=== PATIENT | male | born 1960 | race Caucasian/White ===

== ENCOUNTER 2018-11-20 07:05 | Observation (INO) ==
[2018-11-20] MEDS ORDERED: SODIUM CHLORIDE 0.9% 2,000 ML IV STA (07:33)
[2018-11-20 08:20] LABS: Basophils # 0.1 10*3/uL (0.0-0.2); Basophils % 0.3 % (0.0-0.8); Eosinophils % 0.1 % (0.00-10.9); Hematocrit 44.6 VOL% (42.0-52.0); Hemoglobin 14.5 GM/DL (14.0-18.0); Immature Granulocytes Absolute 0.16 #; Lymphocytes # 1.3 10*3/uL (1.4-4.0); Lymphocytes % 8.1 % (21.2-54.2); Mean Corpuscular HGB Conc 32.5 GM/DL (32-36); Mean Corpuscular Volume 97.8 FL (87-102); Mean Platelet Volume 10.9 FL (9.6-12.0); Monocytes % 5.3 % (1.7-12.7); Neutrophils % 85.2 % (38.7-73.9); Platelet Count 184 T/CUMM (130-400); Red Blood Count 4.56 MC/CUMM (3.8-5.5); Red Cell Distribution Width 14.2 % (9.3-17.3); White Blood Count 16.1 T/CUMM (4-12)
[2018-11-20 08:43] LABS: Alanine Aminotransferase 71 U/L (16-61); Alkaline Phosphatase 75 U/L (45-117); Aspartate Amino Transferase 57 U/L (0-37); Blood Urea Nitrogen 11 MG/DL (7-18); Calcium 8.6 MG/DL (8.5-10.1); Glucose 114 MG/DL (74-106); Total Protein 7.7 G/DL (6.4-8.3)
[2018-11-20 08:50] LABS: Apearance,Urine CLEAR (Clear); Bilirubin,Urine Negative (Negative); Blood, Urine Small mg/dL (Negative); Glucose,Urine (UA) Negative (Negative); Hyaline Casts,Urine 9 /LPF (0-3); Ketones,Urine Negative (Negative); Mucus,Urine Occasional /LPF (Occasional); Nitrite,Urine Negative (Negative); Protein,Urine 30 MG/DL; RBC,Urine 3 /HPF (0-4); Sperm,Urine Occasional /HPF (Negative); Urine Color Yellow (Yellow); WBC,Urine 3 /HPF (0-6)
[2018-11-20 09:01] LABS: Barbiturates Screen,Urine Negative (Negative); Benzodiazepines Screen,Urine Positive (Negative); Cannabinoid Screen,Urine Negative (Negative); Opiate Screen,Urine Positive (Negative); Phencyclidine Screen,Urine Negative (Negative)
[2018-11-20] MEDS ORDERED: ONDANSETRON 4 MG/2 ML VIAL IV PRN (11:09)
[2018-11-20] MEDS ORDERED: PROMETHAZINE 25 MG/1 ML VIAL IM PRN (11:09)
[2018-11-20] MEDS ORDERED: ACETAMINOPHEN 325 MG TABLET PO PRN (11:09)
[2018-11-20] MEDS ORDERED: ENOXAPARIN 40 MG/0.4 ML SYRINGE SUBCUT SCH (11:30)
[2018-11-20] MEDS ORDERED: SODIUM CHLORIDE 0.9% 500 ML IV STA (11:32)
[2018-11-20] MEDS: PANTOPRAZOLE 40 MG TABLET PO SCH ×2 (13:26→20:01)
[2018-11-20] MEDS: SODIUM CHLORIDE 0.9% 1,000 ML IV SCH ×2 (14:17→22:15)
[2018-11-20 14:43] LABS: HIV Antigen/Antibody Result Nonreactive (Nonreactive); Hepatitis B Core IgM Quant < 0.05 Index; Hepatitis B Surface Ag Quant < 0.10 Index; Hepatitis B Surface Ag Result Negative (Negative); Hepatitis C Virus Ab Quant > 11.00 Index; Hepatitis C Virus Ab Result Positive (Negative)
[2018-11-20] MEDS ORDERED: ZIPRASIDONE 20 MG/1 ML VIAL IM PRN (17:59)
[2018-11-21] MEDS: SODIUM CHLORIDE 0.9% 1,000 ML IV SCH (06:50)
[2018-11-21 08:28] VITALS: BP 144/77
== END 2018-11-21 08:30 | disposition home or self-care (01) ==
LOC: EDUNIT# → EDBD → N.ED 07:05 → N.EDINP 07:05 → SUATTDRO 11:09 → N.2E 12:06
PROVIDERS: ADMIT Internal Medicine; ATTEND Internal Medicine

== ENCOUNTER 2020-09-07 13:18 | Inpatient (IN) ==
[2020-09-07 14:47] LABS: Basophils % 0.4 % (0.0-0.8); Eosinophils # 0.2 10*3/uL (0.0-0.87); Eosinophils % 1.8 % (0.00-10.9); Hematocrit 41.5 VOL% (42.0-52.0); Hemoglobin 14.4 GM/DL (14.0-18.0); Immature Granulocytes % 0.5 %; Immature Granulocytes Absolute 0.05 #; Lymphocytes # 3.1 10*3/uL (1.4-4.0); Lymphocytes % 33.3 % (21.2-54.2); Mean Corpuscular HGB Conc 34.7 GM/DL (32-36); Mean Corpuscular Volume 88.3 FL (87-102); Mean Platelet Volume 10.5 FL (9.6-12.0); Monocytes % 6.8 % (1.7-12.7); Neutrophils % 57.2 % (38.7-73.9); Platelet Count 208 T/CUMM (130-400); Red Cell Distribution Width 16.2 % (9.3-17.3); White Blood Count 9.2 T/CUMM (4-12)
[2020-09-07 15:29] LABS: Albumin 2.9 G/DL (3.4-5.0); Calcium 8.7 MG/DL (8.5-10.1); Osmolality,Calculated 260.7 MOS/KG (273-304); Potassium 2.9 MMOL/L (3.5-5.1); Total Protein 7.6 G/DL (6.4-8.3)
[2020-09-07 15:32] LABS: Bilirubin,Total 15.3 MG/DL (0.2-1.0)
[2020-09-07] MEDS ORDERED: POTASSIUM CHLORIDE RIDER 20 MEQ in PREMIX 1 EACH IV PRN (15:55)
[2020-09-07] MEDS ORDERED: POTASSIUM CHLORIDE RIDER 10 MEQ in PREMIX 1 EACH IV PRN (16:48)
[2020-09-07] MEDS ORDERED: DEXTROSE 50% 25 GM/50 ML VIAL IV PRN (16:56)
[2020-09-07] MEDS ORDERED: ALBUTEROL/IPRATROPIUM 3 ML NEB RESP TX PRN (16:56)
[2020-09-07] MEDS ORDERED: GLUCAGON 1 MG VIAL IM PRN (16:56)
[2020-09-07] MEDS ORDERED: CALCIUM CARBONATE CHEW 500 MG TABLET PO PRN (16:56)
[2020-09-07] MEDS ORDERED: SIMETHICONE CHEW 125 MG TABLET PO PRN (16:56)
[2020-09-07] MEDS ORDERED: MORPHINE 4 MG/1 ML VIAL IV PRN (16:56)
[2020-09-07] MEDS ORDERED: ONDANSETRON 4 MG/2 ML VIAL IV PRN (16:56)
[2020-09-07] MEDS ORDERED: ALUMINUM/MAGNES/SIMETH MAX STR 30 ML UDCUP PO PRN (16:56)
[2020-09-07] MEDS: ENOXAPARIN 40 MG/0.4 ML SYRINGE SUBCUT SCH (19:37)
[2020-09-07 19:43] LABS: Hepatitis B Surface Ag Result Non-Reactive (NonReactive)
[2020-09-07 19:44] LABS: Hepatitis C Virus Ab Quant > 11.00 Index; Hepatitis C Virus Ab Result Reactive (NonReactive)
[2020-09-07] MEDS ORDERED: POTASSIUM CHLORIDE INJ 40 MEQ in SODIUM CHLORIDE 0.45% 1,000 ML IV SCH (20:00)
[2020-09-08] MEDS ORDERED: NITROGLYCERIN SL 0.4 MG TABLET SL PRN (00:09)
[2020-09-08] MEDS: SODIUM CHLORIDE 0.9% 1,000 ML IV SCH ×2 (01:58→17:23)
[2020-09-08] MEDS: POTASSIUM CHLORIDE 20 MEQ TABLET PO SCH ×2 (01:59→09:31)
[2020-09-08 06:44] LABS: Basophils % 0.4 % (0.0-0.8); Eosinophils # 0.2 10*3/uL (0.0-0.87); Eosinophils % 2.2 % (0.00-10.9); Hematocrit 37.5 VOL% (42.0-52.0); Hemoglobin 13.1 GM/DL (14.0-18.0); Immature Granulocytes % 0.7 %; Immature Granulocytes Absolute 0.07 #; Lymphocytes # 3.8 10*3/uL (1.4-4.0); Lymphocytes % 39.7 % (21.2-54.2); Mean Corpuscular HGB Conc 34.9 GM/DL (32-36); Mean Corpuscular Volume 88.4 FL (87-102); Mean Platelet Volume 10.9 FL (9.6-12.0); Monocytes % 8.1 % (1.7-12.7); Neutrophils % 48.9 % (38.7-73.9); Platelet Count 213 T/CUMM (130-400); Red Blood Count 4.24 MC/CUMM (3.8-5.5); Red Cell Distribution Width 16.4 % (9.3-17.3); White Blood Count 9.6 T/CUMM (4-12)
[2020-09-08 06:49] LABS: INR 2.5; PT Patient Result 25.4 SECS (9.8-11.9); Partial Thromboplastin Time 44.1 SECS (23.9-33.8)
[2020-09-08 07:03] LABS: Calcium 8.4 MG/DL (8.5-10.1); Osmolality,Calculated 264.4 MOS/KG (273-304); Potassium 3.7 MMOL/L (3.5-5.1)
[2020-09-08 07:05] LABS: Platelet Estimate Adequate
[2020-09-08 07:12] LABS: Albumin 2.4 G/DL (3.4-5.0); Bilirubin,Direct 10.02 MG/DL (0.0-0.20)
[2020-09-08 07:14] LABS: Bilirubin,Indirect 4.6 MG/DL (0.0-1.0); Bilirubin,Total 14.6 MG/DL (0.2-1.0)
[2020-09-08] MEDS ORDERED: MAGNESIUM SULF RIDER 4 GM in PREMIX 1 EACH IV PRN (08:05)
[2020-09-08] MEDS ORDERED: MAGNESIUM SULF RIDER 2 GM in PREMIX 1 EACH IV PRN (08:05)
[2020-09-08] MEDS ORDERED: amLODIPine 2.5 MG TABLET PO SCH (09:00)
[2020-09-08] MEDS ORDERED: PANTOPRAZOLE 40 MG TABLET PO SCH (09:00)
[2020-09-08] MEDS: LORazepam 2 MG/1 ML VIAL IV PRN ×2 (10:44→17:23)
[2020-09-08 13:34] LABS: HIV Antigen/Antibody Result Nonreactive (Nonreactive)
[2020-09-08] MEDS: ENOXAPARIN 40 MG/0.4 ML SYRINGE SUBCUT SCH (17:15)
[2020-09-08 19:40] VITALS: BP 134/86
[2020-09-11 18:51] LABS: CMV DNA Detect/Quant, P Undetected IU/mL (Undetected)
[2020-09-12 09:46] LABS: EBV Quantitative PCR Not Detected
== END 2020-09-08 20:30 | disposition left against medical advice (07) | DRG 443 ==
LOC: N.ED 13:18 → N.EDINP 16:56 → N.TELES 22:03
PROVIDERS: ADMIT Internal Medicine; ATTEND Internal Medicine

== ENCOUNTER 2020-09-11 06:35 | Inpatient (IN) ==
[2020-09-11 07:12] LABS: Basophils % 0.4 % (0.0-0.8); Eosinophils # 0.2 10*3/uL (0.0-0.87); Eosinophils % 1.9 % (0.00-10.9); Hematocrit 43.2 VOL% (42.0-52.0); Hemoglobin 14.6 GM/DL (14.0-18.0); Immature Granulocytes % 0.5 %; Immature Granulocytes Absolute 0.05 #; Lymphocytes # 2.8 10*3/uL (1.4-4.0); Lymphocytes % 27.2 % (21.2-54.2); Mean Corpuscular HGB Conc 33.8 GM/DL (32-36); Mean Corpuscular Volume 88.7 FL (87-102); Mean Platelet Volume 10.6 FL (9.6-12.0); Monocytes % 8.3 % (1.7-12.7); Neutrophils % 61.7 % (38.7-73.9); Platelet Count 226 T/CUMM (130-400); Red Blood Count 4.87 MC/CUMM (3.8-5.5); Red Cell Distribution Width 16.8 % (9.3-17.3); White Blood Count 10.1 T/CUMM (4-12)
[2020-09-11 07:31] LABS: Alanine Aminotransferase 602 U/L (16-61); Albumin 2.7 G/DL (3.4-5.0); Alkaline Phosphatase 199 U/L (45-117); Amylase 17 U/L (25-115); Aspartate Amino Transferase 178 U/L (0-37); Blood Urea Nitrogen 9 MG/DL (7-18); Calcium 8.8 MG/DL (8.5-10.1); Carbon Dioxide 20 MMOL/L (21-32); Estimated Glom Filtration Rate 93 ML/MIN; Glucose 99 MG/DL (74-106); Osmolality,Calculated 251.4 MOS/KG (273-304); Potassium 3.9 MMOL/L (3.5-5.1); Sodium 126 MMOL/L (136-145); Total Protein 9.7 G/DL (6.4-8.3)
[2020-09-11 07:46] LABS: INR 1.5; PT Patient Result 15.4 SECS (9.8-11.9); Partial Thromboplastin Time 37.8 SECS (23.9-33.8)
[2020-09-11 08:10] LABS: Barbiturates Screen,Urine Negative (Negative); Benzodiazepines Screen,Urine Negative (Negative); Cannabinoid Screen,Urine Negative (Negative); Opiate Screen,Urine Negative (Negative); Phencyclidine Screen,Urine Negative (Negative)
[2020-09-11] MEDS ORDERED: DEXTROSE 50% 25 GM/50 ML VIAL IV PRN (08:35)
[2020-09-11] MEDS ORDERED: GLUCAGON 1 MG VIAL IM PRN (08:35)
[2020-09-11] MEDS ORDERED: cloNIDine 0.1 MG TABLET PO PRN (08:40)
[2020-09-11] MEDS ORDERED: THIAMINE INJ 100 MG, FOLIC ACID INJ 1 MG, MULTIVITAMIN INJ 10 ML in SODIUM CHLORIDE 0.9... IV ONE (09:15)
[2020-09-11] MEDS: LORazepam 2 MG/1 ML VIAL IV PRN ×2 (13:10→21:40)
[2020-09-11] MEDS ORDERED: METHOCARBAMOL 750 MG TABLET PO PRN (13:31)
[2020-09-11] MEDS ORDERED: BUPRENORPHINE SL TAB 2 MG TABLET SL SCH (14:00)
[2020-09-11] MEDS ORDERED: chlordiazePOXIDE 25 MG CAPSULE PO SCH (14:00)
[2020-09-11] MEDS: SODIUM CHLORIDE 0.9% 1,000 ML IV SCH (14:33)
[2020-09-11] MEDS: chlordiazePOXIDE 25 MG CAPSULE PO SCH ×2 (17:31→22:33)
[2020-09-11] MEDS: BUPRENORPHINE SL TAB 2 MG TABLET SL SCH (17:32)
[2020-09-11] MEDS ORDERED: ALUMINUM/MAGNES/SIMETH MAX STR 30 ML UDCUP PO PRN (21:57)
[2020-09-11 22:31] LABS: Blood, Urine Negative (Negative); Glucose,Urine (UA) Negative (Negative); Ketones,Urine Negative (Negative); Nitrite,Urine Negative (Negative); Protein,Urine Negative; RBC,Urine 3 /HPF (0-4); Urine Appearance CLEAR (Clear); Urine Color Amber (Yellow); Urine Specific Gravity 1.009 (1.001-1.035)
[2020-09-11 22:33] LABS: Bilirubin,Urine Moderate mg/dL (Negative)
[2020-09-12] MEDS: BUPRENORPHINE SL TAB 2 MG TABLET SL SCH ×3 (01:20→17:43)
[2020-09-12] MEDS: chlordiazePOXIDE 25 MG CAPSULE PO SCH ×3 (05:11→17:42)
[2020-09-12 07:26] LABS: Basophils # 0.1 10*3/uL (0.0-0.2); Basophils % 0.4 % (0.0-0.8); Eosinophils # 0.1 10*3/uL (0.0-0.87); Hematocrit 37.4 VOL% (42.0-52.0); Hemoglobin 13.3 GM/DL (14.0-18.0); Immature Granulocytes % 0.6 %; Immature Granulocytes Absolute 0.07 #; Lymphocytes # 2.5 10*3/uL (1.4-4.0); Lymphocytes % 19.8 % (21.2-54.2); Mean Corpuscular HGB Conc 35.6 GM/DL (32-36); Mean Platelet Volume 10.5 FL (9.6-12.0); Monocytes % 9.1 % (1.7-12.7); Neutrophils % 69.1 % (38.7-73.9); Platelet Count 215 T/CUMM (130-400); White Blood Count 12.6 T/CUMM (4-12)
[2020-09-12 07:44] LABS: Albumin 2.3 G/DL (3.4-5.0); Calcium 8.6 MG/DL (8.5-10.1); Osmolality,Calculated 248.5 MOS/KG (273-304); Potassium 4.1 MMOL/L (3.5-5.1); Total Protein 8.7 G/DL (6.4-8.3)
[2020-09-12 07:52] LABS: Bilirubin,Total 20.1 MG/DL (0.2-1.0)
[2020-09-12] MEDS: PANTOPRAZOLE 40 MG TABLET PO SCH (09:30)
[2020-09-12] MEDS: NICOTINE 21 MG/24 HR PATCH TRANSDERM SCH (12:44)
[2020-09-12] MEDS: THIAMINE INJ 100 MG, FOLIC ACID INJ 1 MG, MULTIVITAMIN INJ 10 ML in SODIUM CHLORIDE 0.9... IV SCH (12:44)
[2020-09-12] MEDS: SODIUM CHLORIDE 0.9% 1,000 ML IV SCH (12:45)
[2020-09-12] MEDS: HydrOXYzine PAMOATE 50 MG CAPSULE PO PRN (21:21)
[2020-09-13] MEDS: chlordiazePOXIDE 25 MG CAPSULE PO SCH ×3 (01:07→18:32)
[2020-09-13] MEDS: BUPRENORPHINE SL TAB 2 MG TABLET SL SCH ×3 (01:07→18:32)
[2020-09-13 06:45] LABS: Basophils # 0.1 10*3/uL (0.0-0.2); Basophils % 0.5 % (0.0-0.8); Eosinophils # 0.2 10*3/uL (0.0-0.87); Eosinophils % 1.9 % (0.00-10.9); Hematocrit 37.6 VOL% (42.0-52.0); Hemoglobin 13.1 GM/DL (14.0-18.0); Immature Granulocytes % 0.6 %; Immature Granulocytes Absolute 0.06 #; Lymphocytes # 2.4 10*3/uL (1.4-4.0); Lymphocytes % 24.5 % (21.2-54.2); Mean Corpuscular HGB Conc 34.8 GM/DL (32-36); Mean Corpuscular Volume 88.9 FL (87-102); Mean Platelet Volume 10.8 FL (9.6-12.0); Monocytes % 7.4 % (1.7-12.7); Neutrophils % 65.1 % (38.7-73.9); Platelet Count 169 T/CUMM (130-400); Red Blood Count 4.23 MC/CUMM (3.8-5.5); Red Cell Distribution Width 17.2 % (9.3-17.3); White Blood Count 9.7 T/CUMM (4-12)
[2020-09-13 06:51] LABS: INR 1.3; PT Patient Result 13.3 SECS (9.8-11.9)
[2020-09-13 07:08] LABS: Albumin 2.1 G/DL (3.4-5.0); Calcium 8.3 MG/DL (8.5-10.1); Osmolality,Calculated 257.8 MOS/KG (273-304); Total Protein 8.3 G/DL (6.4-8.3)
[2020-09-13 07:29] LABS: Bilirubin,Total 21.8 MG/DL (0.2-1.0)
[2020-09-13] MEDS: THIAMINE INJ 100 MG, FOLIC ACID INJ 1 MG, MULTIVITAMIN INJ 10 ML in SODIUM CHLORIDE 0.9... IV SCH (13:12)
[2020-09-13] MEDS: NICOTINE 21 MG/24 HR PATCH TRANSDERM SCH (13:16)
[2020-09-13] MEDS: PANTOPRAZOLE 40 MG TABLET PO SCH (15:43)
[2020-09-14] MEDS: chlordiazePOXIDE 25 MG CAPSULE PO SCH ×3 (01:18→17:15)
[2020-09-14] MEDS: SODIUM CHLORIDE 0.9% 1,000 ML IV SCH ×3 (01:18→12:40)
[2020-09-14] MEDS: BUPRENORPHINE SL TAB 2 MG TABLET SL SCH (04:18)
[2020-09-14 06:52] LABS: Basophils % 0.6 % (0.0-0.8); Eosinophils # 0.2 10*3/uL (0.0-0.87); Eosinophils % 2.1 % (0.00-10.9); Hematocrit 33.6 VOL% (42.0-52.0); Hemoglobin 11.4 GM/DL (14.0-18.0); Immature Granulocytes % 0.6 %; Immature Granulocytes Absolute 0.04 #; Lymphocytes # 2.2 10*3/uL (1.4-4.0); Lymphocytes % 31.1 % (21.2-54.2); Mean Corpuscular HGB Conc 33.9 GM/DL (32-36); Mean Corpuscular Volume 90.3 FL (87-102); Mean Platelet Volume 11.4 FL (9.6-12.0); Monocytes % 9.5 % (1.7-12.7); Neutrophils % 56.1 % (38.7-73.9); Platelet Count 149 T/CUMM (130-400); Red Blood Count 3.72 MC/CUMM (3.8-5.5); Red Cell Distribution Width 16.9 % (9.3-17.3); White Blood Count 7.1 T/CUMM (4-12)
[2020-09-14 07:06] LABS: INR 1.3; PT Patient Result 13.5 SECS (9.8-11.9); Partial Thromboplastin Time 31.9 SECS (23.9-33.8)
[2020-09-14 07:25] LABS: Alanine Aminotransferase 176 U/L (16-61); Albumin 1.8 G/DL (3.4-5.0); Alkaline Phosphatase 127 U/L (45-117); Aspartate Amino Transferase 61 U/L (0-37); Blood Urea Nitrogen 12 MG/DL (7-18); Calcium 7.7 MG/DL (8.5-10.1); Carbon Dioxide 19 MMOL/L (21-32); Estimated Glom Filtration Rate 100 ML/MIN; Glucose 79 MG/DL (74-106); HDL Cholesterol < 10 MG/DL (40-60); Osmolality,Calculated 268.1 MOS/KG (273-304); Potassium 3.2 MMOL/L (3.5-5.1); Sodium 135 MMOL/L (136-145); Triglycerides 203 MG/DL (2-150); VLDL CHOLESTEROL 40.6 MG/DL
[2020-09-14] MEDS: PANTOPRAZOLE 40 MG TABLET PO SCH (08:49)
[2020-09-14] MEDS: NICOTINE 21 MG/24 HR PATCH TRANSDERM SCH (08:49)
[2020-09-14] MEDS ORDERED: MAGNESIUM SULF RIDER 4 GM in PREMIX 1 EACH IV PRN (10:21)
[2020-09-14] MEDS ORDERED: MAGNESIUM SULF RIDER 2 GM in PREMIX 1 EACH IV PRN (10:21)
[2020-09-14] MEDS: THIAMINE INJ 100 MG, FOLIC ACID INJ 1 MG, MULTIVITAMIN INJ 10 ML in SODIUM CHLORIDE 0.9... IV SCH (12:39)
[2020-09-14] MEDS: HydrOXYzine PAMOATE 50 MG CAPSULE PO PRN (17:15)
[2020-09-14] MEDS: ONDANSETRON 4 MG/2 ML VIAL IV PRN (20:20)
[2020-09-15] MEDS: chlordiazePOXIDE 25 MG CAPSULE PO SCH ×3 (01:36→17:12)
[2020-09-15 04:33] LABS: Basophils % 0.4 % (0.0-0.8); Eosinophils # 0.1 10*3/uL (0.0-0.87); Hematocrit 35.1 VOL% (42.0-52.0); Hemoglobin 12.3 GM/DL (14.0-18.0); Immature Granulocytes % 0.7 %; Immature Granulocytes Absolute 0.08 #; Lymphocytes % 18.2 % (21.2-54.2); Mean Corpuscular Volume 87.5 FL (87-102); Mean Platelet Volume 11.7 FL (9.6-12.0); Monocytes % 7.9 % (1.7-12.7); Neutrophils % 71.8 % (38.7-73.9); Platelet Count 165 T/CUMM (130-400); Red Blood Count 4.01 MC/CUMM (3.8-5.5); Red Cell Distribution Width 17.1 % (9.3-17.3); White Blood Count 10.7 T/CUMM (4-12)
[2020-09-15 04:53] LABS: Albumin 2.1 G/DL (3.4-5.0); Calcium 8.3 MG/DL (8.5-10.1); Osmolality,Calculated 260.7 MOS/KG (273-304); Potassium 3.5 MMOL/L (3.5-5.1)
[2020-09-15 04:55] LABS: Bilirubin,Total 23.7 MG/DL (0.2-1.0)
[2020-09-15 04:59] LABS: INR 1.2; PT Patient Result 13.1 SECS (9.8-11.9)
[2020-09-15] MEDS: PANTOPRAZOLE 40 MG TABLET PO SCH (08:51)
[2020-09-15] MEDS: FOLIC ACID 1 MG TABLET PO SCH (08:52)
[2020-09-15] MEDS: DICYCLOMINE 10 MG CAPSULE PO PRN (08:52)
[2020-09-15] MEDS: MULTIVITAMIN (CENTRUM) TABLET PO SCH (08:52)
[2020-09-15] MEDS: THIAMINE 100 MG TABLET PO SCH (08:52)
[2020-09-15] MEDS: NICOTINE 21 MG/24 HR PATCH TRANSDERM SCH (09:20)
[2020-09-15] MEDS: ONDANSETRON 4 MG/2 ML VIAL IV PRN (20:48)
[2020-09-16] MEDS: chlordiazePOXIDE 25 MG CAPSULE PO SCH ×3 (01:55→17:23)
[2020-09-16 05:34] LABS: Basophils # 0.1 10*3/uL (0.0-0.2); Basophils % 0.5 % (0.0-0.8); Eosinophils # 0.1 10*3/uL (0.0-0.87); Eosinophils % 0.7 % (0.00-10.9); Hematocrit 33.6 VOL% (42.0-52.0); Hemoglobin 12.1 GM/DL (14.0-18.0); Immature Granulocytes Absolute 0.11 #; Lymphocytes # 1.7 10*3/uL (1.4-4.0); Lymphocytes % 15.6 % (21.2-54.2); Mean Corpuscular Volume 87.3 FL (87-102); Mean Platelet Volume 10.7 FL (9.6-12.0); Monocytes % 7.7 % (1.7-12.7); Neutrophils % 74.5 % (38.7-73.9); Platelet Count 144 T/CUMM (130-400); Red Blood Count 3.85 MC/CUMM (3.8-5.5); Red Cell Distribution Width 17.1 % (9.3-17.3); White Blood Count 10.7 T/CUMM (4-12)
[2020-09-16 06:04] LABS: Calcium 8.4 MG/DL (8.5-10.1); Osmolality,Calculated 262.5 MOS/KG (273-304); Potassium 3.6 MMOL/L (3.5-5.1); Total Protein 7.8 G/DL (6.4-8.3)
[2020-09-16 06:45] LABS: Bilirubin,Total 23.4 MG/DL (0.2-1.0)
[2020-09-16] MEDS: NICOTINE 21 MG/24 HR PATCH TRANSDERM SCH (09:29)
[2020-09-16] MEDS: FOLIC ACID 1 MG TABLET PO SCH (09:29)
[2020-09-16] MEDS: PANTOPRAZOLE 40 MG TABLET PO SCH (09:29)
[2020-09-16] MEDS: THIAMINE 100 MG TABLET PO SCH (09:29)
[2020-09-16] MEDS: MULTIVITAMIN (CENTRUM) TABLET PO SCH (09:29)
[2020-09-17] MEDS: chlordiazePOXIDE 25 MG CAPSULE PO SCH ×3 (01:26→17:12)
[2020-09-17] MEDS ORDERED: ERGOCALCIFEROL 50,000 UNIT CAPSULE PO SCH (07:30)
[2020-09-17 08:32] LABS: Basophils % 0.5 % (0.0-0.8); Eosinophils # 0.1 10*3/uL (0.0-0.87); Hematocrit 32.4 VOL% (42.0-52.0); Hemoglobin 11.1 GM/DL (14.0-18.0); Immature Granulocytes Absolute 0.08 #; Lymphocytes # 1.8 10*3/uL (1.4-4.0); Lymphocytes % 21.5 % (21.2-54.2); Mean Corpuscular HGB Conc 34.3 GM/DL (32-36); Mean Platelet Volume 11.4 FL (9.6-12.0); Platelet Count 152 T/CUMM (130-400); Red Blood Count 3.56 MC/CUMM (3.8-5.5); Red Cell Distribution Width 17.3 % (9.3-17.3); White Blood Count 8.2 T/CUMM (4-12)
[2020-09-17 08:56] LABS: Albumin 1.8 G/DL (3.4-5.0); Calcium 8.2 MG/DL (8.5-10.1); Osmolality,Calculated 265.4 MOS/KG (273-304); Potassium 3.2 MMOL/L (3.5-5.1); Total Protein 7.3 G/DL (6.4-8.3)
[2020-09-17 08:58] LABS: Bilirubin,Total 23.6 MG/DL (0.2-1.0)
[2020-09-17] MEDS: FOLIC ACID 1 MG TABLET PO SCH (10:01)
[2020-09-17] MEDS: PANTOPRAZOLE 40 MG TABLET PO SCH (10:02)
[2020-09-17] MEDS: THIAMINE 100 MG TABLET PO SCH (10:02)
[2020-09-17] MEDS: MULTIVITAMIN (CENTRUM) TABLET PO SCH (10:02)
[2020-09-17] MEDS: NICOTINE 21 MG/24 HR PATCH TRANSDERM SCH (10:08)
[2020-09-17] MEDS: POTASSIUM CHLORIDE 20 MEQ TABLET PO PRN ×4 (12:47→17:14)
[2020-09-17] MEDS: DICYCLOMINE 10 MG CAPSULE PO PRN (15:33)
[2020-09-18] MEDS: chlordiazePOXIDE 25 MG CAPSULE PO SCH ×3 (02:08→18:32)
[2020-09-18 06:12] LABS: Basophils % 0.4 % (0.0-0.8); Eosinophils # 0.1 10*3/uL (0.0-0.87); Eosinophils % 0.9 % (0.00-10.9); Hematocrit 34.1 VOL% (42.0-52.0); Hemoglobin 12.1 GM/DL (14.0-18.0); Immature Granulocytes % 1.3 %; Immature Granulocytes Absolute 0.13 #; Lymphocytes # 2.1 10*3/uL (1.4-4.0); Lymphocytes % 19.8 % (21.2-54.2); Mean Corpuscular HGB Conc 35.5 GM/DL (32-36); Mean Corpuscular Volume 87.9 FL (87-102); Mean Platelet Volume 11.6 FL (9.6-12.0); Monocytes % 7.7 % (1.7-12.7); Neutrophils % 69.9 % (38.7-73.9); Platelet Count 164 T/CUMM (130-400); Red Blood Count 3.88 MC/CUMM (3.8-5.5); Red Cell Distribution Width 17.7 % (9.3-17.3); White Blood Count 10.3 T/CUMM (4-12)
[2020-09-18 06:21] LABS: INR 1.3; PT Patient Result 13.3 SECS (9.8-11.9)
[2020-09-18 06:59] LABS: Albumin 1.9 G/DL (3.4-5.0); Calcium 8.4 MG/DL (8.5-10.1); Osmolality,Calculated 262.5 MOS/KG (273-304); Potassium 3.7 MMOL/L (3.5-5.1); Total Protein 7.6 G/DL (6.4-8.3)
[2020-09-18 07:11] LABS: Bilirubin,Total 22.7 MG/DL (0.2-1.0)
[2020-09-18] MEDS: FOLIC ACID 1 MG TABLET PO SCH (09:50)
[2020-09-18] MEDS: THIAMINE 100 MG TABLET PO SCH (09:50)
[2020-09-18] MEDS: PANTOPRAZOLE 40 MG TABLET PO SCH (09:50)
[2020-09-18] MEDS: NICOTINE 21 MG/24 HR PATCH TRANSDERM SCH (09:50)
[2020-09-18] MEDS: MULTIVITAMIN (CENTRUM) TABLET PO SCH (09:50)
[2020-09-19] MEDS: chlordiazePOXIDE 25 MG CAPSULE PO SCH (00:47)
[2020-09-19] MEDS: LACTATED RINGERS 1,000 ML IV SCH ×2 (08:45→19:07)
[2020-09-19] MEDS ORDERED: propofoL 200 MG/20 ML VIAL IV ONE (09:10)
[2020-09-19] MEDS ORDERED: ETOMIDATE 20 MG/10 ML VIAL IV ONE (09:10)
[2020-09-19] MEDS ORDERED: LIDOCAINE 2% 5 ML VIAL ONE (09:10)
[2020-09-19] MEDS ORDERED: PHENYLEPHRINE 1 MG/10 ML SYRINGE IV ONE (09:22)
[2020-09-19 10:58] LABS: INR 1.3; PT Patient Result 13.3 SECS (9.8-11.9)
[2020-09-19 11:12] LABS: Albumin 2.1 G/DL (3.4-5.0); Calcium 8.9 MG/DL (8.5-10.1); Osmolality,Calculated 262.5 MOS/KG (273-304); Potassium 3.5 MMOL/L (3.5-5.1); Total Protein 7.8 G/DL (6.4-8.3)
[2020-09-19 11:14] LABS: Bilirubin,Total 25.9 MG/DL (0.2-1.0)
[2020-09-19] MEDS: PANTOPRAZOLE 40 MG TABLET PO SCH (18:47)
[2020-09-19] MEDS: FOLIC ACID 1 MG TABLET PO SCH (18:47)
[2020-09-19] MEDS: NICOTINE 21 MG/24 HR PATCH TRANSDERM SCH (18:47)
[2020-09-19] MEDS: THIAMINE 100 MG TABLET PO SCH (18:47)
[2020-09-19] MEDS: MULTIVITAMIN (CENTRUM) TABLET PO SCH (18:48)
[2020-09-20 05:22] LABS: Basophils # 0.1 10*3/uL (0.0-0.2); Basophils % 0.5 % (0.0-0.8); Eosinophils # 0.1 10*3/uL (0.0-0.87); Eosinophils % 0.9 % (0.00-10.9); Hematocrit 31.4 VOL% (42.0-52.0); Hemoglobin 11.2 GM/DL (14.0-18.0); Immature Granulocytes % 1.1 %; Immature Granulocytes Absolute 0.16 #; Lymphocytes # 2.1 10*3/uL (1.4-4.0); Lymphocytes % 14.8 % (21.2-54.2); Mean Corpuscular HGB Conc 35.7 GM/DL (32-36); Mean Platelet Volume 11.7 FL (9.6-12.0); Monocytes % 7.2 % (1.7-12.7); Neutrophils % 75.5 % (38.7-73.9); Platelet Count 146 T/CUMM (130-400); Red Blood Count 3.53 MC/CUMM (3.8-5.5); Red Cell Distribution Width 18.3 % (9.3-17.3); White Blood Count 14.1 T/CUMM (4-12)
[2020-09-20 05:57] LABS: Hypochromasia 2+; Macrocytosis 1+; Platelet Estimate Adequate; Target Cells Slight
[2020-09-20 06:01] LABS: Albumin 1.9 G/DL (3.4-5.0); Calcium 8.5 MG/DL (8.5-10.1); Osmolality,Calculated 257.8 MOS/KG (273-304); Potassium 3.2 MMOL/L (3.5-5.1); Total Protein 7.4 G/DL (6.4-8.3)
[2020-09-20 06:15] LABS: Bilirubin,Total 24.7 MG/DL (0.2-1.0)
[2020-09-20] MEDS: PANTOPRAZOLE 40 MG TABLET PO SCH (09:22)
[2020-09-20] MEDS: MULTIVITAMIN (CENTRUM) TABLET PO SCH (09:22)
[2020-09-20] MEDS: THIAMINE 100 MG TABLET PO SCH (09:23)
[2020-09-20] MEDS: FOLIC ACID 1 MG TABLET PO SCH (09:23)
[2020-09-20] MEDS: NICOTINE 21 MG/24 HR PATCH TRANSDERM SCH (09:35)
[2020-09-20] MEDS: LACTATED RINGERS 1,000 ML IV SCH (09:36)
[2020-09-20 11:52] VITALS: BP 101/63
== END 2020-09-20 14:25 | disposition home or self-care (01) | DRG 441 ==
LOC: EDBD → EDUNIT# → N.ED 06:35 → SUATTDRO 08:35 → N.EDINP 08:35 → N.4E 10:26
PROVIDERS: ADMIT Internal Medicine; ATTEND Internal Medicine Geriatric Medicine